=== PATIENT | female | born 1990 | race African-American/Black ===

== ENCOUNTER 2024-01-20 09:19 | Emergency (ER) | payer MEDICAID ==
[~2024-01-20] VITALS: Ht 172.7 cm; Wt 78.0 kg
[2024-01-20] MEDS: KETOROLAC 30MG/ML VIAL IV STA (09:54)
[2024-01-20 10:07] VITALS: TEMP 98.4; O2SAT 100
[2024-01-20 10:18] LABS: BASOPHILS % 1.1 % (0.0-2.0); CHLORIDE 109 mEq/L (98-107); EOSINOPHILS % 1.4 % (0.0-5.0); HEMATOCRIT. 34.8 % (36.0-48.0); HEMOGLOBIN. 11.7 g/dL (12.0-16.0); LYMPHOCYTES % 20.4 % (20.0-50.0); MEAN CORPUSCULAR HEMOGLOBIN 32.6 pg (28.0-32.0); MEAN CORPUSCULAR HGB CONC 33.6 g/dL (31.0-37.0); MEAN PLATELET VOLUME 8.8 fl (7.4-10.4); MONOCYTES % 10.7 % (2.0-8.0); NEUTROPHILS % 66.4 % (40.0-76.0); PLATELET 303 x1000/uL (130-400); POTASSIUM 3.6 mEq/L (3.5-5.1); RED BLOOD CELL COUNT 3.58 mill/uL (4.2-5.4); RED CELL DISTRIBUTION WIDTH 14.2 % (11.6-14.6); SODIUM 137 mEq/L (136-145); WHITE BLOOD COUNT 6.7 x1000/uL (4.5-11.0)
[2024-01-20 10:19] LABS: CALCIUM 8.7 mg/dL (8.7-10.4); CARBON DIOXIDE 22 mEq/L (21-32)
[2024-01-20 10:24] LABS: GLUCOSE 98 mg/dL (70-105); UREA NITROGEN BLOOD 11 mg/dL (9-23)
[2024-01-20 10:37] LABS: TROPONIN I HIGH SENSITIVITY < 4 ng/L (3.0-34)
[2024-01-20] MEDS: SODIUM CHLORIDE 0.9% 1,000 ML IV ONE (10:56)
[2024-01-20] MEDS ORDERED: TOPUD PO (11:13)
[2024-01-20 11:41] VITALS: BP 103/70; PULSE 56; RESP 16; O2SAT 100
== END 2024-01-20 11:42 | disposition home or self-care (01) ==
LOC: ER 09:19 → EDBEDREQ 09:56 → ER 11:42
DX: R07.89 Other chest pain (principal); Z88.2 Allergy status to sulfonamides
CPT/HCPCS: 80048; 83880; 85025; 85379; 84484; 36415; 71045; 93005; 96361; 96374; 99285; J1885; J7030; Z7610

== ENCOUNTER 2024-01-20 13:43 | Emergency (ER) | payer MEDICAID ==
[~2024-01-20] VITALS: Ht 170.2 cm; Wt 83.9 kg
[~2024-01-20 13:43] MED LIST: TOPUD PO
[2024-01-20 14:27] VITALS: O2SAT 97
[2024-01-20 15:20] VITALS: BP 118/58; PULSE 60; RESP 16; TEMP 36.78072; O2SAT 95
== END 2024-01-20 15:20 | disposition home or self-care (01) ==
LOC: ER 13:43
DX: R07.9 Chest pain, unspecified (principal); F25.9 Schizoaffective disorder, unspecified; F51.5 Nightmare disorder; Z88.2 Allergy status to sulfonamides
CPT/HCPCS: 99282

== ENCOUNTER 2024-01-25 10:08 | Emergency (ER) | payer MEDICAID ==
[~2024-01-25] VITALS: Ht 170.2 cm; Wt 81.6 kg
[2024-01-25 10:17] VITALS: O2SAT 100
[2024-01-25 11:27] LABS: CLARITY URINE TURBID (CLEAR); COLOR URINE YELLOW (YELLOW); GLUCOSE URINE NEGATIVE (NEGATIVE); KETONES URINE TRACE (NEGATIVE); LEUKOCYTE ESTERASE URINE 3+ (NEGATIVE); NITRITE URINE NEGATIVE (NEGATIVE); OCCULT BLOOD URINE TRACE (NEGATIVE); PH URINE 5.5 (4.5-8.0); PROTEIN URINE 1+ (NEGATIVE); UROBILINOGEN URINE 0.2 E.U./dL (0.2-1.0)
[2024-01-25 11:33] LABS: BASOPHILS % 0.6 % (0.0-2.0); EOSINOPHILS % 3.2 % (0.0-5.0); HEMATOCRIT. 38.3 % (36.0-48.0); HEMOGLOBIN. 12.7 g/dL (12.0-16.0); MEAN CORPUSCULAR HEMOGLOBIN 32.1 pg (28.0-32.0); MEAN CORPUSCULAR HGB CONC 33.2 g/dL (31.0-37.0); MEAN CORPUSCULAR VOLUME 96.6 fL (81.0-99.0); MONOCYTES % 7.5 % (2.0-8.0); NEUTROPHILS % 54.7 % (40.0-76.0); PLATELET 329 x1000/uL (130-400); RED BLOOD CELL COUNT 3.97 mill/uL (4.2-5.4); RED CELL DISTRIBUTION WIDTH 13.8 % (11.6-14.6); WHITE BLOOD COUNT 4.7 x1000/uL (4.5-11.0)
[2024-01-25 11:40] LABS: CARBON DIOXIDE 22 mEq/L (21-32); CHLORIDE 109 mEq/L (98-107); POTASSIUM 3.8 mEq/L (3.5-5.1); SODIUM 139 mEq/L (136-145)
[2024-01-25 11:41] LABS: CALCIUM 9.1 mg/dL (8.7-10.4)
[2024-01-25 11:45] LABS: HCG SCREEN NEGATIVE
[2024-01-25 11:46] LABS: GLUCOSE 111 mg/dL (70-105); UREA NITROGEN BLOOD 15 mg/dL (9-23)
[2024-01-25 11:49] LABS: ETHANOL BLOOD < 10 mg/dL (<10)
[2024-01-25 11:49] LABS: BACTERIA URINE 2+; SQUAMOUS EPITHELIAL CELL URINE 2+ /lpf (RARE/1+); WBC URINE 15-25 /hpf (0-2); YEAST URINE NONE SEEN
[2024-01-25 12:07] LABS: *AMPHETAMINES SCREEN URINE NEGATIVE (NEGATIVE); *BARBITURATES SCREEN URINE NEGATIVE (NEGATIVE); *BENZODIAZEPINES SCREEN URINE PRESUMPTIVE POSITIVE (NEGATIVE); *COCAINE SCREEN URINE NEGATIVE (NEGATIVE); METHADONE URINE SCREEN NEGATIVE (NEGATIVE); OPIATES URINE SCREEN NEGATIVE (NEGATIVE)
[2024-01-25 12:08] LABS: CANNABINOID URINE SCREEN PRESUMPTIVE POSITIVE (NEGATIVE); ECSTASY MDMA SCREEN URINE NEGATIVE (NEGATIVE); PHENCYCLIDINE URINE SCREEN NEGATIVE (NEGATIVE)
[2024-01-25] MEDS: LORAZEPAM 2MG/ML INJ IM ONE (14:34)
[2024-01-25] MEDS: HALOPERIDOL LACTATE 5MG/ML VIAL IM ONE (14:34)
[2024-01-25] MEDS: DIPHENHYDRAMINE 50MG/ML VIAL IM ONE ×2 (14:34→14:47)
[2024-01-25] MEDS: OLANZAPINE 10 MG/VIAL IM ONE (14:48)
[2024-01-25 21:33] VITALS: BP 118/66; PULSE 79; RESP 18; TEMP 36.72516; O2SAT 99
[2024-01-25] MEDS: LORAZEPAM 0.5MG TABLET PO ONE (21:56)
== END 2024-01-25 22:12 | disposition short-term general hospital (02) ==
LOC: ER 10:17
DX: R45.851 Suicidal ideations (principal); Z88.2 Allergy status to sulfonamides; Z20.822 Contact with and (suspected) exposure to COVID-19
CPT/HCPCS: 80305; 80048; 81003; 80320; 84703; 85025; 87086; 36415; 96372; 99285; 87426; J3490; J1200; J1630; J2060; Z7610 ×2; G0480